=== PATIENT | female | born 1980 | race Caucasian/White ===

== ENCOUNTER → 2020-11-12 | Outpatient (CLI) | payer OTHER ==
[~2020-11-12] MED LIST: IBUP600T16 PO; PREN1TAB54 PO
--- NOTE | 2020-11-12 15:15 | RAD ---
Examination: 1. Bilateral digital diagnostic mammogram. 2. Limited left breast ultrasound. INDICATION: 40-year-old woman with a palpable lump in the left breast. COMPARISON: None. This is a baseline. TECHNIQUE: Bilateral CC and MLO views were obtained with digital technique along with bilateral X CCL views and were reviewed with computer-aided detection. Targeted ultrasound of the left breast in the area of patient reported palpable concern was also performed. FINDINGS: Heterogeneously dense breast parenchyma. Negative right mammogram. No mammographic correlate to the area of palpable concern in the left breast. Targeted ultrasound left breast revealed no suspicious sonographic findings. A sonographically benign cyst at the superficial aspect of a ridge of fibroglandular tissue was identified, measuring 5 mm in width at the 12:00 position 3 cm from the nipple. IMPRESSION: Benign findings on bilateral mammogram with targeted ultrasound left breast. No mammographic or sonographic evidence of malignancy. BI-RADS Category 2 Benign findings Recommend clinical management (which should include biopsy if there are any clinically suspicious findings). In the absence of any clinically suspicious finding, return to routine screening next doing one year is recommended.
== END ==
LOC: MAMMO 13:45
PROVIDERS: ATTEND Obstetrics & Gynecology
DX: R92.8 Other abnormal and inconclusive findings on diagnostic imaging of breast (principal); N63.20 Unspecified lump in the left breast, unspecified quadrant
CPT/HCPCS: 76641; 77066; G0279; 77062

== ENCOUNTER → 2021-12-22 | Outpatient (CLI) | payer OTHER ==
--- NOTE | 2021-12-22 16:32 | RAD ---
Bilateral digital screening 2-D and 3-D (tomosynthesis) mammogram: Reason for examination: Routine screening. Comparison is made to previous mammogram from 09/12/2020. Bilateral mammograms in CC and oblique projections were obtained with 2-D imaging and 3-D tomosynthes is imaging and reviewed on the workstation. Interpretation was made with the benefit of CAD. Findings: Breast density: Category C. The breasts are heterogeneously dense, which may obscure small masses. There are no suspicious masses, malignant appearing calcifications or architectural distortion. Impression: No evidence of malignancy. ASSESSMENT: BI-RADS 1. Recommendations: Routine screening mammograms. This patient's information has been entered into a reminder system for the patient to be notified wit h the results of her examination and a target date for the next mammogram. Your patient's mammogram demonstrates that she has dense breast tissue (breast density category C or D), which could hide abnormalities, and if she has other risk factors for breast cancer that have bee n identified, she might benefit from supplemental screening tests that may be suggested by you as her ordering physician. Dense breast tissue, in and of itself, is a relatively common condition. Therefo re, this information is not provided to cause undue concern, but rather to raise your awareness and t o promote discussion with your patient regarding the presence of other risk factors, in addition to d ense breast tissue. Electronically signed by: Griselda Sears MD (12/22/2021 4:29 PM) [id number]
== END ==
LOC: MAMMO 07:40
PROVIDERS: ATTEND Obstetrics & Gynecology
DX: Z12.31 Encounter for screening mammogram for malignant neoplasm of breast (principal)
CPT/HCPCS: 77063; 77067